=== PATIENT | female | born 1970 | race Caucasian/White ===

== ENCOUNTER 2024-12-13 08:48 | Emergency (ER) | payer BC, SELFPAY ==
--- OUTSIDE RECORDS SUMMARY | 2024-12-13 08:55 | XMS_ITS | Clinical Summary ---
Author Organization [facility] Address [address] 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 Gender Identity Not on file Sexual Orientation Not on file Plan of Treatment Health Maintenance Due Date Last Done Comments DTAP/TDAP/TD VACCINES (1 - Tdap) 1989 HEPATITIS B VACCINES (1 of 3 - 19+ 3-dose series) 06/18 HPV/Cotest (21-29) 07/12/1991 HPV/Cotest (30-65) 2000 CERVICAL CANCER SCREENING 05/09/2001 PAP SMEAR 05/09/2001 05/09/1998 BREAST CANCER SCREENING 2010 COLORECTAL SCREENING 07/12/2015 Colorectal Cancer Screening 07/12/2015 FIT-DNA Q 3 years 07/12/2015 FIT/FOBT Q 1 year 07/12/2015 Flex Sig/CT Colonography Q 5 years 07/12/2015 ZOSTER VACCINE (1 of 2) 2020 INFLUENZA VACCINE (#1) 2024
--- OUTSIDE RECORDS SUMMARY | 2024-12-13 08:55 | XMS_ITS | Encounter Summary ---
Author Organization [facility] Address [address] [place] [address] Care Team Providers Care Employee Operations Examiner Name Role Phone Unavailable Primary Care Provider Unavailabl e Encounter Details Date Type Department Care Team (Latest Contact Info) Description 09/23/2001 Outpatient Historical [facility] D[facility]at[facility]- [facility] [place] [address] [place] [id number] Sumit Jean MD NO ADDRESS ON FILE SOLAR SKIN DAMAGE NOS (Primary Dx) Social History Tobacco Use Types Packs/Day Years Used Date Smoking Tobacco: Never Assessed Comments Unknown Sex and Gender Information Value Date Recorded Sex Assigned at Not on file 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
--- OUTSIDE RECORDS SUMMARY | 2024-12-13 08:55 | XMS_ITS | Encounter Summary ---
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 Name Role Phone Unavailable Primary Care Provider Unavailabl e Encounter Details Date Type Department Care Team (Latest Contact Info) Description 05/09/1998 Outpatient Historical [facility] Kasey Nelson MD [address] [address] Gynecologic examination (Primary Dx); Excessive menstruation Social History Tobacco Use Types Packs/Day Years Used Date Smoking Tobacco: Never Assessed Comments Unknown Sex and Gender Information Value Date Recorded Sex Assigned at Not on file 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
--- OUTSIDE RECORDS SUMMARY | 2024-12-13 08:55 | XMS_ITS | Clinical Summary ---
Author Organization [facility] Administrative Offices Address [address] [place] [id number] Care Team Providers Care Central Sterile Technician Name Role Phone Unavailable Primary Care Provider Unavailabl e Allergies No known active allergies Medications estradioL (Estrace) 0.01% (0.1 mg/g) vaginal cream Insert 1 Gram vaginally every Wednesday, Wednesday, and Wednesday. 42.5 Gram 11 Active Active Problems No known active problems Encounters Date Type Department Care Team Description 11/21/2024 External Device Data STL ABSTRACTION Provider, Abstract 11/01/2024 External Device Data STL ABSTRACTION Provider, Abstract 10/31/2024 External Device Data STL ABSTRACTION Provider, Abstract 10/03/2024 External Device Data STL ABSTRACTION Provider, Abstract 09/12/2024 External Device Data STL ABSTRACTION Provider, Abstract from Last 3 Months Social History Tobacco Use Types Packs/Day Years Used Date Smoking Tobacco: Never Smokeless Tobacco: Never Tobacco Cessation:Counseling Given: Not Answered Alcohol Use Standard Drinks/Week Comments Never 0 (1 standard drink = 0.6 oz pur e alcohol) Comments No Sex and Gender Information Value Date Recorded Sex Assigned at Female 05/15/2024 3:45 PM LEARNING SPECIALIST Legal Sex Female 12:32 AM LEARNING SPECIALIST Gender Identity Female 05/15/2024 3:45 PM LEARNING SPECIALIST Sexual Orientation Straight 05/15/2024 3: 45 PM LEARNING SPECIALIST Last Filed Vital Signs Vital Sign Reading Time Taken Comments Blood Pressure 130/78 05/10/2024 1:07 PM LEARNING SPECIALIST Pulse - - Temperature - - Respiratory Rate - - Oxygen Saturation - - Inhaled Oxygen Concentration - - Weight 60.3 kg (133 lb) 05/10/2024 1:07 PM LEARNING SPECIALIST Height 162.6 cm (5' 4 ) 05/10/2024 1:07 PM LEARNING SPECIALIST Body Mass Index 22.83 05/10/2024 1:07 PM LEARNING SPECIALIST Plan of Treatment Upcoming Encounters Date Type Department Care Team (Late st Contact Info) Description 06/18/2025 1:45 PM LEARNING SPECIALIST Office Visit [facility] [address] [place] [address] Albert Carson MD [address] [place] [address] Health Maintenance Due Date Last Done Comments DTAP/TDAP/TD VACCINES (1 - Tdap) 1989 HEPATITIS B VACCINES (1 of 3 - 19+ 3-dose series) 06/18 BREAST CANCER SCREENING 2010 COLORECTAL SCREENING 07/12/2015 Colorectal Cancer Screening 07/12/2015 FIT-DNA Q 3 years 07/12/2015 FIT/FOBT Q 1 year 07/12/2015 Flex Sig/CT Colonography Q 5 years 07/12/2015 ZOSTER VACCINE (1 of 2) 2020 INFLUENZA VACCINE (#1) 2024 PAP SMEAR 05/10/2027 05/10/2024 CERVICAL CANCER SCREENING 05/10/2029 HPV/Cotest (21-29) 05/10/2029 05/10/2024 HPV/Cotest (30-65) 05/10/2029 05/10/2024 Procedures Procedure Name Priority Date/Time Associated Diagnosis Comments CERV/VAG CYTO SCREEN PAP W/HPV Routine 05/10/2024 1:06 PM LEARNING SPECIALIST Well woman exam with routine gynecological exam from Last 3 Months or Most Recently Relevant to Health Maintenance Results * CERV/VAG CYTO SCREEN PAP W/HPV (05/10/2024 1:06 PM LEARNING SPECIALIST) CLINICAL INFORMATION [facility] Comment:None given LAST MENSTRUAL PERIOD [facility] Comment:NONE GIVEN PREV PAP: [facility] Comment:NONE GIVEN PREV BX: [facility] Comment:NONE GIVEN SOURCE [facility] Comment:Endocervix ADEQUACY: [facility] Comment: Specimen processed and examined, but unsatisfactory for evaluation due to an insufficient number of squamous cells. PAP INTERP [employer] Eug[employer] Beckham Comment: Cytology Results: Unable to provide interpretation due to unsatisfactory specimen adequacy. COMMENT (PAP TEST) [employer] [facility] Beckham Comment: This Pap test has been evaluated with computer assisted technology. STEAMBOAT INSPECTOR: Lucina Beckham Comment: SKIP GILBERT(ASCP) CT screening location: [place] [address] [address] [place] [address] REVIEW STEAMBOAT INSPECTOR: [employer]za [employer] Document SolutionsMaria Eugenia Beckham Comment: KATALINA CT(ASCP) CT screening location: [place] [address] [address] [place] [address] EXPLANATORY NOTE Que [employer] Eugenia Beckham Comment: EXPLANATORY NOTE: The Pap is a screening test for cervical cancer. It is not a diagnostic test and is subject to false negative and false positive results. It is most reliable when a satisfactory sample, regularly obtained, is submitted with relevant clinical findings and history, and when the Pap result is evaluated along with historic and current clinical information. HPV E6/E7 Not Detected Not Detected [employer] Eugenia Beckham Comment: Methodology: Manager Content-Mediated Amplification This assay detects E6/E7 viral messenger RNA (mRNA) from 14 high-risk HPV types (16,18,31,33,35,39,45,51,52,56,58,59,66,68). Cervical sources are required for HPV testing. If a vaginal source from a patient who has had a total hysterectomy with removal of cervix was submitted, please contact the testing laboratory for alternative testing options. For additional information, please refer to http://education.One to the World/faq/EIM586s1 (This link if provided for information/ educational purposes only.) Test Performed at: [facility] [id number] [place] [address] Rikki IVY Genital SWAB OF ENDOCERVIX / Unknown 05/10/2024 1:06 PM LEARNING SPECIALIST 05/11/2024 8:25 AM LEARNING SPECIALIST us Albert Carson MD PATHOLOGY/CYTOLOGY ORDERABLE S Final Result [facility] [phone] [facility] [address] [address] from Last 3 Months or Most Recently Relevant to Health Maintenance Insurance [employer]
[2024-12-13 08:59] VITALS: BP 131/84; PULSE 72; RESP 16; TEMP 36.6; O2SAT 100; BMI 21.9
--- NOTE | 2024-12-13 09:05 | ED_ITS ---
HPI - Abdominal Pain 2 General: Chief Complaint: Abdominal Pain Stated Complaint: L lower abd pain into back, n/d Time Seen by Provider: 12/13/24 08:50 History of Present Illness: 54-year-old female with left lower quadr ant abdominal pain radiating to her back began this morning. Pain has been very severe. She describes it as similar to labor pain. She had 1 episode of diarrhea. She has not had any fever no previous abdominal surgeries she has had a colonoscopy in the past no significant abnormalities were noted to her. She denies any medic easy melena hematemesis or coffee-ground emesis no hematuria no dysuria urgency or frequency she has not had any history of kidney stones in the past. Associated Symptoms: Reports diarrhea and nausea; Denies chills, dysuria and fever(s) Related Data Previous Rx's ?Medication ?Instructions ?Recorded hydrocodone 5 mg-acetaminophen 325 1 tab PO Q6H PRN pa in #20 tabs 12/13/24 mg tablet promethazine 25 mg tablet 25 mg PO Q6H PRN nausea and 12/13/24 vomiting #20 tabs tamsulosin 0.4 mg capsule 0.4 mg PO DAILY #7 caps 11/18 11/10 Allergies Allergy/AdvReac Type Severity Reaction Status Date / Time No Known Allergies Allergy Verified 12/13/24 09:03 Review of Systems 2 Const: Denies: fever(s) or chills Card: Denies: chest pain Resp: Denies: dyspnea GI: Reports: abdominal pain, nausea and diarrhea : Denies: dysuria, urinary frequency or urinary urgency Musc: Denies: neck pain or back pain Skin/Breast: Denies: rash PFSH ED 2 PFSH: Medical History No pertinent past medical history Surgical History No pertinent past surgical history Social History Smoking and tobacco/nicotine status: never used tobacco/nicotine Physical Exam 2 Const: GENERAL APPEARANCE: cooperative ORIENTATION/CONSCIOUSNESS: Yes awake, Yes oriented to person, Yes oriented to place and Yes oriented to time HENMT: COMMON NORMALS: normocephalic, atraumatic and hearing grossly normal bilaterally HEAD & SCALP: normocephalic and atraumatic Resp: COMMON NORMALS: normal respiratory effort, No retractions, No use of accessory muscles and clear to auscultation bilaterally AUSCULTATION: clear to auscultation bilaterally Cardio: COMMON NORMALS: regular rate, regular rhythm and No murmurs present (Cardio) RATE: regular rate RHYTHM: regular rhythm GI: COMMON NORMALS: No hepatosplenomegaly present AUSCULTATION: Yes normoactive bowel sounds PALPATION: Yes Tenderness to palpation present (GI) Details: LLQ, No Guarding due to palpation present (GI) and Yes No hepatosplenomegaly present Extremity: COMMON NORMALS: normal to inspection, capillary refill normal, no clubbing, cyanosis or edema, no calf tenderness and no pedal edema Neuro: SENSORIUM/ORIENTATION: Yes oriented to person, Yes oriented to place and Yes oriented to time Skin: COMMON NORMALS: no rashes or lesions noted GENERAL SKIN EXAM: no rashes or lesions noted Course 2 Vital Signs: Vital signs: Vital Signs Temperature 97.8 F 12/13/24 08:59 Pulse Rate 82 12/13/24 11:15 Respiratory Rate 16 12/13/24 11:15 Blood Pressure 116/75 12/13/24 11:15 Pulse Oximetry 98 12/13/24 11:15 Oxygen Delivery Me thod Room Air 12/13/24 10:42 MDM - Abdominal Pain Medical Decision Making CT shows 2.7 mm stone at the left U UVJ. Patient's pain is improved discharged home with hydrocodone tamsulosin promethazine strain urine for stone and follow- up with primary care. Also advised her she will need to follow-up with her primary care regarding questionable calcification at the dome of the uterus this can be done on a nonurgent basis. Return if pain is uncontrolled. No signs of urinary tract infection accompanying this. Medical Records I reviewed the patient's medical records. Lab Data I reviewed the patient's lab results. 12/13/24 09:14 12/13/24 09:14 Labs/Radiology: Radiology Impressions Abdomen/Pelvis CT 12/13/24 09:22 IMPRESSION: 1. Tiny obstructing distal UVJ calculus measuring 2.7 mm with LEFT ureterectasis. Delayed LEFT nephrogram with mild LEFT pelvicaliectasis. Recommend correlation for pyelonephritis. 2. Small enhancing lesions in the uterine fundus. This could followed up with ultrasound and/or hysteroscopy. 3. Fatty liver. 4. Small esophageal hiatal hernia. Laboratory Results WBC 4.41 10^3/uL (3.29-11.43) 12/13/24 09:14 RBC 4.85 10^6/uL (3.85-5.65) 12/13/24 09:14 Hgb 14.30 g/dL (11.27-16.99) 12/13/24 09:14 Hct 42.1 % (36-47) 12/13/24 09:14 MCV 86.8 fl (85-98) 12/13/24 09:14 MCH 29.5 pg (27-33) 12/13/24 09:14 MCHC 34.0 g/dL (30-55) 12/13/24 09:14 RDW 12.7 % (12.1-15.1) 12/13/24 09:14 Plt Count 199 10^3/cmm (157-399) 12/13/24 09:14 MPV 11.2 fL (7.4-10.4) H 12/13/24 09:14 Neut % (Auto) 59.9 % 12/13/24 09:14 Lymph % (Auto) 33.6 % 12/13/24 09:14 [place] % (Auto) 4.5 % 12/13/24 09:14 Eos % (Auto) 0.7 % 12/13/24 09:14 Baso % (Auto) 1.1 % 12/13/24 09:14 Neut # (Auto) 2.64 10^3/uL (1.8-7.7) 12/13/24 09:14 Lymph # (Auto) 1.5 10^3/uL (0.8-4.8) 12/13/24 09:14 [place] # (Auto) 0.2 10^3/uL (0.2-0.9) 12/13/24 09:14 Eos # (Auto) 0.0 10^3/uL (0.0-0.8) 12/13/24 09:14 Baso # (Auto) 0.1 10^3/uL (0.0-0.1) 12/13/24 09:14 Nucleated RBC % (auto) 0 % 12/13/24 09:14 Nucleated RBCs # 0.0 /100WBC 12/13/24 09:14 Sodium 137 mmol/L (136-145) 12/13/24 09:14 Potassium 4.1 mmol/L (3.5-5.1) 12/13/24 09:14 Chloride 102 mmol/L (98-107) 12/13/24 09:14 Carbon Dioxide 27 mmol/L (22-29) 12/13/24 09:14 Anion Gap 12.1 (5-19) 12/13/24 09:14 BUN 22 mg/dL (6-20) H 12/13/24 09:14 Creatinine 0.7 mg/dL (0.5-0.9) 12/13/24 09:14 GFR Calculation 87.2 mL/min (90-130) L 12/13/24 09:14 Glucose 105 mg/dL (65-115) 12/13/24 09:14 Calculated Osmolality 288 mOsm/kg (285-295) 12/13/24 09:14 Calcium 9.6 mg/dL (8.5-10.5) 12/13/24 09:14 Total Bilirubin 0.7 mg/dL (0.15-1.2) 12/13/24 09:14 AST 15 U/L (0-32) 12/13/24 09:14 ALT 8 U/L (0-33) 12/13/24 09:14 Alkaline Phosphatase 105 U/L (35-105) 12/13/24 09:14 Total Protein 7.5 g/dL (6.6-8.7) 12/13/24 09:14 Albumin 4.6 g/dL (3.5-5.2) 12/13/24 09:14 Globulin 2.9 g/dL (1.3-4.6) 12/13/24 09:14 Lipase 36 U/L (13-60) 12/13/24 09:14 Urine Color Yellow (Yellow) 12/13/24 09:35 Urine Appearance Clear (CLEAR) 12/13/24 09:35 Urine pH 7.0 (5-7) 12/13/24 09:35 Ur Specific [place] 1.027 (1.005-1.030) 12/13/24 09:35 Urine Protein 1+ (Negative) A 12/13/24 09:35 Urine Glucose (UA) Negative (Normal) 12/13/24 09:35 Urine Ketones Trace (Negative) 12/13/24 09:35 Urine Blood 2+ (Negative) A 12/13/24 09:35 Urine Nitrate Negative (Negative) 12/13/24 09:35 Urine Bilirubin Negative (Negative) 12/13/24 09:35 Urine Urobilinogen 1.0 mg/dL (Negative) 12/13/24 09:35 Ur Leukocyte Esterase 1+ (Negative) A 12/13/24 09:35 Urine RBC 21-50 /hpf (0-2) H 12/13/24 09:35 Urine WBC 6-10 /hpf (0-5) 12/13/24 09:35 Ur Squamous Epith Cells 0-5 /hpf (0-5) 12/13/24 09:35 Amorphous Sediment Not Reportable 12/13/24 09:35 Urine Bacteria None seen /hpf (NONE) 12/13/24 09:35 Hyaline Casts 10.32 /lpf 12/13/24 09:35 All radiology interpretation(s) finalized by discharge Discharge Plan Discharge Patient Disposition: Home Clinical Impression: Calculus of kidney Condition: Stable Prescriptions: New hydrocodone-acetaminophen 5-325 mg tablet 1 tab PO Q6H PRN (Reason: pain) Qty: 20 0RF promethazine 25 mg tablet 25 mg PO Q6H PRN (Reason: nausea and vomiting) Qty: 20 0RF tamsulosin 0.4 mg capsule 0.4 mg PO DAILY Qty: 7 0RF Discharge Orders: Discharge ED (Routine); Ordered 12/13/24 Ordered By: Esdras Jerez Referrals: Trevor Oshea DO [Primary Care Provider, Family Practice] Discharge Diet: Usual diet Discharge Activity: Resume usual activity Patient Instructions: Kidney Stones (ED), How to Strain Your Urine (ED), Opioid Safety, Pain Management, Patient Portal & Melissa Instructions Activity Restrictions/Additional Instructions: Thank you for choosing [facility] for your healthcare needs today. It is very important that you follow up as instructed or that you return to the Emergency Department should you have concerns or if your condition changes or worsens in any way. Emergency department visits focused on emergent conditions in some cases urinary may require further evaluation on an outpatient basis. (Please note that included in your discharge packet is information opioid safety and pain management. This information is given to all patients were discharged from the ER regardless of their discharge diagnosis or the medicines they usually take or are prescribed. This is a requirement for [facility].) You were seen in the emergency room with complaints of left flank pain. You are found to have had a small kidney stone 2.7 mm. Most kidney stones less than 5 mm will pass spontaneously. There is no signs of infection in your urine. Strain your urine to collect the stone so it can be analyzed. Additionally you were given pain medications and nausea medicines to use as needed. You are also given tamsulosin this medicine will help with dilating the ureter to relieve discomfort. Incidental finding on your CT of some calcified area on the dome of the uterus that should be followed up with your primary care doctor at some point in the future. You may need nonemergent ultrasound. Print Language: Barbadian Coding Level of Care Code ED Thoracic Surgeon for Bria Rod
--- NOTE | 2024-12-13 09:22 | CT_ITS ---
WS: [id number] CT ABDOMEN PELVIS TECHNIQUE: Contrast-enhanced CT of the abdomen and pelvis with coronal and sagittal reformatted images. CLINICAL INFORMATION: LLQ abd pain COMPARISON: None. DLP: 348.[address] scans at [facility] use at least one of these dose optimization techniques: automated exposure control; mA and/or kV adjustment per patient size (includes targeted exams where dose is matched to clinical indication); or iterative reconstruction. FINDINGS: Tiny obstructing calculus at the LEFT UVJ measuring 2.7 mm. Delayed LEFT nephrogram with LEFT ureterectasis extending to the UVJ. Mild LEFT pelvicaliectasis. Recommend correlation for LEFT pyelonephritis. Normal RIGHT renal parenchymal enhancement with small renal cysts. Normal caliber abdominal aorta. Celiac and SMA are patent. Small fat-containing umbilical hernia. Normal sigmoid colon. Enhancing lesions in the uterine myometrium near the fundus. This could be further evaluated with ultrasound and/or hysteroscopy. Normal appendix. Fatty liver. Tiny cyst undersurface RIGHT hepatic lobe. Portal vein and splenic vein are normal. Tiny cyst in the LEFT hepatic lobe near the dome of the liver. Normal gallbladder. Lung bases are well aerated. Adrenal glands are normal. Small esophageal hiatal hernia. Air-fluid level in the stomach. Normal spleen. Adrenal glands are normal. CT/CT abdomen pelvis w con* [id number] IMPRESSION: 1. Tiny obstructing distal UVJ calculus measuring 2.7 mm with LEFT ureterectas is. Delayed LEFT nephrogram with mild LEFT pelvicaliectasis. Recommend correlat ion for pyelonephritis. 2. Small enhancing lesions in the uterine fundus. This could followed up with ultrasound and/or hysteroscopy. 3. Fatty liver. 4. Small esophageal hiatal hernia.
[2024-12-13 09:23] LABS: Hematocrit 42.1 % (36-47); Hemoglobin 14.30 g/dL (11.27-16.99); Mean Corpuscular HGB Conc 34.0 g/dL (30-55); Mean Corpuscular Hemoglobin 29.5 pg (27-33); Mean Corpuscular Volume 86.8 fl (85-98); Nucleated Red Blood Cells % 0 %; Platelet Count 199 10^3/cmm (157-399); Red Blood Count 4.85 10^6/uL (3.85-5.65); White Blood Count 4.41 10^3/uL (3.29-11.43)
[2024-12-13] MEDS: ondansetron 2 mg/ML SDV 2 mL 4 MG IVP (09:28)
[2024-12-13] MEDS: HYDROmorphone 0.5 MG/0.5 ML INJ IVP (09:28)
[2024-12-13 09:46] LABS: Alanine Aminotransferase 8 U/L (0-33); Albumin Level 4.6 g/dL (3.5-5.2); Alkaline Phosphatase 105 U/L (35-105); Anion Gap 12.1 (5-19); Aspartate Amino Transferase 15 U/L (0-32); Blood Urea Nitrogen 22 mg/dL (6-20); Calcium 9.6 mg/dL (8.5-10.5); Carbon Dioxide 27 mmol/L (22-29); Chloride 102 mmol/L (98-107); Creatinine Clr Calc Pharmacy 84.3400; Globulin 2.9 g/dL (1.3-4.6); Glucose 105 mg/dL (65-115); Lipase 36 U/L (13-60); Osmolality Calculated 288 mOsm/kg (285-295); Potassium 4.1 mmol/L (3.5-5.1); Sodium 137 mmol/L (136-145); Total Protein 7.5 g/dL (6.6-8.7)
[2024-12-13 09:53] LABS: Glucose Urine UA Negative (Normal); Nitrate Urine Negative (Negative); Specific Gravity, Urine 1.027 (1.005-1.030)
[2024-12-13 09:58] LABS: Add Urine Microscopic? YES
[2024-12-13] MEDS: iohexol 350 mg/mL 500 mL Btl (per mL) IV (10:00)
[2024-12-13 10:37] LABS: UA Slide Review UA Slide Review Perf
[2024-12-13 10:42] VITALS: BP 116/75; PULSE 93; O2SAT 100
[2024-12-13 11:15] VITALS: BP 116/75; PULSE 82; RESP 16; O2SAT 98
== END 2024-12-13 11:16 | disposition home or self-care (01) ==
PROVIDERS: Emergency Provider Family Medicine; PCP Family Medicine
DX: N20.0 Calculus of kidney (principal)
CPT/HCPCS: 36415; 74177; 80053; 81001; 83690; 85025; 87086; 96374; 96375; 99285; J1171; J2405; J7030

== ENCOUNTER 2024-12-22 09:42 | Outpatient (CLI) | payer BC, SELFPAY | END 2024-12-22 09:43 | disposition home or self-care (01) | LOC: LAB 09:44 | PROVIDERS: PCP Family Medicine; Visit Provider Family Medicine | DX: Z01.89 Encounter for other specified special examinations (principal) | CPT/HCPCS: 82365 ==